=== PATIENT | female | born 1970 | race Caucasian/White ===

== ENCOUNTER 2016-08-11 13:08 | Emergency (ER) | payer OTHER ==
[2016-08-11 13:22] VITALS: BP 123/82; PULSE 86; RESP 16; TEMP 98.6; O2SAT 98
[2016-08-11 13:29] LABS: COLOR YELLOW; LEUKOCYTE ESTERASE,URINE 2+ (NEGATIVE); NITRITE,URINE NEGATIVE (NEGATIVE)
[2016-08-11 13:42] LABS: RBC,URINE 25-50 /hpf (0-3); WBC,URINE >182 /hpf (0-3)
[2016-08-11 13:43] LABS: BACTERIA 1+ /hpf (NONE SEEN)
[2016-08-11] MEDS ORDERED: CEPHALEXIN 500 MG CAP PO ONE (14:29)
--- NOTE | 2016-08-11 14:50 | UCPHY ---
H & P Time Seen by Provider: 08/11/16 13:55 Patient Type: Established HPI/ROS: HPI Urinary complaints. 45-year-old female by private vehicle. She complains of increased frequency with urination and some hematuria this morning. She has also had some suprapubic discomfort. No fever. No back pain. No other complaints. ROS: Constitutional: No fever, no chills. No weakness. Gastrointestinal: No abdominal pain, no vomiting, no diarrhea. Genitourinary: As above. Musculoskeletal: No back pain. No neck pain. No myalgias or arthralgias. Skin: No rashes. Neurological: No headache. No focal weakness or altered sensation. Past medical history: Kidney stones. Urinary tract infections in the past. Social history: Here by herself. Physical Exam: General Appearance: Alert, no distress. This patient is responding to questions appropriately and in full sentences. This patient appears well- hydrated and well-nourished. Gastrointestinal: Abdomen is soft and nontender, no masses, bowel sounds normal. No focal tenderness at McBurney's point. No Cosme sign. Neurological: Motor sensory function is grossly intact. Cranial nerves are normal. Gait is normal. Skin: Warm and dry, no rashes. Musculoskeletal: No CVA tenderness bilaterally. Extremities are symmetrical. All joints range without pain or impingement. Psychiatric: No agitation. No depression. Database: EKG: Imaging: Procedures: Emergency department course: Urinalysis indicates urinary tract infection. Vital signs reviewed and are normal. Medication allergies reviewed with this patient. We will start her on Keflex in the emergency department and treat her with his antibiotic for urinary tract infection. Follow-up and return to emergency department precautions reviewed. All of her questions were answered. She was discharged in good condition. Differential Diagnosis: The differential diagnosis on this patient includes but is not limited to urinary tract infection. Pyelonephritis unlikely. This represents a partial list of diagnoses considered. These considerations are based on history, physical exam, past history, reassessment and diagnostic testing. Smoking Status: Current every day smoker Constitutional: Initial Vital Signs Temperature (C) 37.0 C 08/11/16 13:20 Heart Rate 86 08/11/16 13:20 Respiratory Rate 16 08/11/16 13:20 Blood Pressure 123/82 H 08/11/16 13:20 O2 Sat (%) 98 08/11/16 13:20 O2 Delivery Mode Room Air Allergies/Adverse Reactions: No Known Allergies Allergy (Unverified 08/11/16 13:19) Home Medications: Medication Instructions Recorded Cephalexin [Keflex (*)] 500 mg PO Q6 7 Days 08/11/16 Pseudoephedrine HCl [Sinus 12 Hour] 08/11/16 Medical Decision Making - Data Points Laboratory Results: 08/11/16 08/11/16 13:20 13:20 Urine Color YELLOW Urine Appearance HAZY Urine pH 6.0 (5.0-7.5) Ur Specific [place] <= 1.005 (1.002-1.030) Urine Protein NEGATIVE (NEGATIVE) Urine Ketones NEGATIVE (NEGATIVE) Urine Blood 3+ H (NEGATIVE) Urine Nitrate NEGATIVE (NEGATIVE) Urine Bilirubin NEGATIVE (NEGATIVE) Urine Urobilinogen 0.2 EU EU (0.2-1.0) Ur Leukocyte Esterase 2+ H (NEGATIVE) Urine RBC 25-50 /hpf H /hpf (0-3) Urine WBC >182 /hpf H /hpf (0-3) Ur Epithelial Cells 2+ /lpf H /lpf (NONE-1+) Urine Bacteria 1+ /hpf H /hpf (NONE SEEN) Ur Culture Indicated? INDICATED H (NI) Urine Glucose NEGATIVE (NEGATIVE) Urine Test NEGATIVE Medications Given: Discontinued Medications Cephalexin HCl (Keflex) 500 mg PO EDNOW ONE PRN Reason: Protocol Stop: 08/11/16 14:30 Last Admin: 08/11/16 14:40 Dose: 500 mg Departure - Departure Disposition: Home, Routine, Self-Care Clinical Impression: Urinary tract infection Condition: Good Instructions: Urinary Tract Infection in Women (ED) Additional Instructions: Read and follow provided instructions. Follow-up with your primary care physician in 1-2 days for re-evaluation as needed. Take antibiotic as prescribed through entire course of treatment. Return to the emergency department for worsening symptoms, back pain, fever, vomiting or other serious concerns. Referrals: NONE *PRIMARY CARE P,. [Primary Care Provider] - As per Instructions Prescriptions: Cephalexin [Keflex (*)] 500 mg PO Q6 7 Days - PQRS PQRS Measurement: Not applicable.
== END 2016-08-11 14:55 | disposition home or self-care (01) ==
LOC: CED 13:08
DX: N39.0 Urinary tract infection, site not specified (principal)
CPT/HCPCS: 81003-PO; 81015-PO; 81025-PO; 99214-PO; G0463-PO